=== PATIENT | male | born 1960 | race Caucasian/White ===

== ENCOUNTER 2023-11-26 10:51 | Emergency (ER) | payer MEDICARE, BC, SELFPAY ==
[2023-11-26] VITALS (21 sets, daily range): BP systolic 112–127; BP diastolic 73–85; PULSE 54–67; RESP 20; TEMP 36.5–36.6; O2SAT 94–99; BMI 30.6
--- NOTE | 2023-11-26 11:39 | CT_ITS ---
Patient: CAMILA NOLAN Facility:?[facility] Patient ID:?[id number] Site Patient ID:?[id number]. Site :?[id number] Study:?CT-Chest WITHOUT-11/26/2023 12:06:07 PM Ordering Physician:?DR. ARMSTRONG Final Report: INDICATION: Cough, fever. TECHNIQUE: CT chest without contrast. COMPARISON: None. FINDINGS: Lungs and pleura: Focal left upper lobe tree-in-bud nodularity. Trace scattered granulomatous disease, including the right lung base. No large focal consolidation. No pleural effusions, pleural thickening, or pneumothorax. Heart and vasculature: Heart size is normal. Thoracic aorta and pulmonary artery are normal in caliber. Lymph nodes/mediastinum: No mediastinal, hilar, or axillary adenopathy. Chest wall: No masses. Upper abdomen: No significant findings. Tiny right adrenal adenoma. Bones: Unremarkable for age. IMPRESSION: Focal left upper lobe tree-in-bud nodularity, likely pneumonia. Please note that all CT scans at this facility use dose modulation, iterative reconstruction, and/or weight-based dosing when appropriate to reduce radiation dose to as low as reasonably achievable. Dictated by Kem Shoemaker MD @ 11/26/2023 12:17:05 PM Signed by:?Kem Shoemaker MD @11/26/2023 12:17:05 PM (Electronic Signature)
--- NOTE | 2023-11-26 11:41 | ED_ITS ---
HPI - General Adult General Date Seen: 11/26/23 Chief complaint: Cough Stated complaint: cough,low back pain Time Seen by Provider: 11/26/23 10:52 Source: patient, family and RN notes reviewed Mode of arrival: ambulatory Limitations: no limitations History of Present Illness HPI narrative: Patient is a 62-year-old male who has been feeling sick since Sunday, 3 days ago. Was seen at [facility] yesterday, had negative viral swabs, normal blood work and chest x-ray by his report. He believes that he is been wheezy, was prescribed Tessalon yesterday for cough but no other medications. He is here with his today because he is feeling worse. He feels fatigued and weak, he has a cough which is sometimes productive of yellow or green sputum. He has not had a fever that he knows of although he says he woke up 1 night and his temples felt hot. He has not had any nausea, vomiting or diarrhea, but notes that he has not really been eating because of decreased appetite. General health is good, he takes some medication for bipolar disorder that he has been on for quite some time. He does not smoke or drink. He says he has been pushing really hard as they are doing a renovation on his house and he is doing a lot of the work himself, he thinks he may have just over worked himself. Related Data Allergies Allergy/AdvReac Type Severity Reaction Status Date / Time No Known Drug Allergies Allergy Verified 11/26/23 11:07 Review of Systems Status of ROS: Reports: 10 or more systems reviewed and unremarkable except as noted in History and below [facility] Social History Smoking Status: Never smoker Do you use any of these nicotine containing products: None Second hand tobacco smoke exposure: No How often do you have a drink containing alcohol: monthly or less How many standard drinks containing alcohol do you have on a typical day: 1 or 2 How often do you have six or more drinks on one occasion: Never AUDIT-C Alcohol total score: 1 Non-prescribed substance use: denies use service: No Exam Narrative: Exam Narrative: Vital signs as noted above. In general, an alert, nontoxic male. Fatigued. Head: Normocephalic, atraumatic. Eyes: Pupils are equal reactive. Extraocular movements are full. Conjunctivae are normal. ENT: Mucous membranes are moist. Throat is normal. Neck: Supple without lymphadenopathy. Heart: Regular rate and rhythm. No murmur or rub. Lungs: Scattered rhonchi and coarse crackles, no significant wheezing, no increased work of breathing. Abdomen: Soft and nontender. Extremities: Well perfused. No edema. No calf tenderness. Pulses intact. Neurologic: Patient is alert and oriented to person and place. Speech is fluent. Face is symmetric. Moves all extremities equally. Affect: Normal. Skin: Warm and dry. Well perfused. Const: Vital Signs, click to edit/add: Vital Signs - 24 hr 11/26/23 11:09 11/26/23 11:26 11/26/23 11:30 Temperature 97.7 F Pulse Rate 67 60 Pulse Rate [Pulse Oximeter] 63 Respiratory Rate 20 Blood Pressure Blood Pressure [Ri ght Upper Arm] 127/83 Pulse Oximetry 95 96 [facility] 11/26/23 11:32 11/26/23 11:45 11/26/23 12:03 Temperature Pulse Rate 60 62 58 L Pulse Rate [Pulse Oximeter] Respiratory Rate Blood Pressure 121/81 Blood Pressure [Ri ght Upper Arm] Pulse Oximetry 96 96 96 Oxygen Delivery [facility] 11/26/23 12:04 11/26/23 12:15 11/26/23 12:30 Temperature Pulse Rate 60 61 60 Pulse Rate [Pulse Oximeter] Respiratory Rate Blood Pressure 127/85 Blood Pressure [Ri ght Upper Arm] Pulse Oximetry 95 96 96 Oxygen Delivery [facility] 11/26/23 12:32 11/26/23 12:45 11/26/23 13:00 Temperature Pulse Rate 60 57 L 58 L Pulse Rate [Pulse Oximeter] Respiratory Rate Blood Pressure 112/76 Blood Pressure [Ri ght Upper Arm] Pulse Oximetry 94 95 94 Oxygen Delivery [facility] 11/26/23 13:02 11/26/23 13:03 11/26/23 13:19 Temperature Pulse Rate 59 L 57 L 58 L Pulse Rate [Pulse Oximeter] Respiratory Rate Blood Pressure 115/76 Blood Pressure [Ri ght Upper Arm] Pulse Oximetry 95 94 99 Oxygen Delivery [facility] 11/26/23 13:30 11/26/23 13:32 11/26/23 13:45 Temperature Pulse Rate 56 L 57 L 55 L Pulse Rate [Pulse Oximeter] Respiratory Rate Blood Pressure 118/73 Blood Pressure [Ri ght Upper Arm] Pulse Oximetry 98 98 99 Oxygen Delivery Me thod 11/26/23 14:00 11/26/23 14:00 11/26/23 14:02 Temperature 97.8 F Pulse Rate 57 L 56 L Pulse Rate [Pulse Oximeter] Respiratory Rate Blood Pressure 116/79 Blood Pressure [Ri ght Upper Arm] Pulse Oximetry 96 96 Oxygen Delivery Me thod 11/26/23 14:03 Temperature Pulse Rate 54 L Pulse Rate [Pulse Oximeter] Respiratory Rate Blood Pressure Blood Pressure [Ri ght Upper Arm] Pulse Oximetry 99 Oxygen Delivery Me thod Documenting provider has reviewed patient's vital signs: yes Course Course ED Course: I elected to place an IV here, he had a L of normal saline. I checked labs, CBC shows a normal white blood cell count of 5.25 and a normal diff. He does have mild thrombocytopenia with platelet count [id number], hemoglobin is 13. Metabolic panel is normal. CRP was elevated at 14.2, sed rate elevated at 49, repeat COVID influenza negative. I elected to do a CT scan without contrast of the chest primarily to look for pneumonia or any signs of adenopathy. I was not concerned about pulmonary embolism in this patient. CT scan read as follows by Radiology:FINDINGS: Lungs and pleura: Focal left upper lobe tree-in-bud nodularity. Trace scattered granulomatous disease, including the right lung base. No large focal consolidation. No pleural effusions, pleural thickening, or pneumothorax. Heart and vasculature: Heart size is normal. Thoracic aorta and pulmonary artery are normal in caliber. Lymph nodes/mediastinum: No mediastinal, hilar, or axillary adenopathy. Chest wall: No masses. Upper abdomen: No significant findings. Tiny right adrenal adenoma. Bones: Unremarkable for age. IMPRESSION: Focal left upper lobe tree-in-bud nodularity, likely pneumonia. I do think it is reasonable to cover him with an antibiotic, though discussed I think there is likely a viral component to this as well and he likely will not feel significantly improved for another several days to week. Thrombocytopenia is mild, may be viral, can be followed up with primary care. Reviewed that while he may not feel significantly improved over the next couple of days, he should not feel significantly worse either, for significant shortness of breath, high fevers, vomiting chills etcetera he should come back. We did try DuoNeb here, he did not feel that it made any significant difference, so I do not think prednisone or inhaled beta agonists are likely to be helpful symptomatically. I do not hear significant bronchospasm. If he is not improved to baseline in a week, he should be seen by his primary doctor. Vital Signs Vital signs: Initial Vital Signs Temperature 97.7 F 11/26/23 11:09 Temperature Source Temporal Artery Scan 11/26/23 11:09 Pulse Rate 63 11/26/23 11:09 Pulse Rhythm Regular 11/26/23 11:09 Respiratory Rate 20 11/26/23 11:09 Blood Pressure 127/83 11/26/23 11:09 Blood Pressure Mean 97 11/26/23 11:09 Blood Pressure Position Supine 11/26/23 11:09 Pulse Oximetry 95 11/26/23 11:09 Oxygen Delivery Method Room Air 11/26/23 11:09 Vital Signs Temperature 97.7 F 11/26/23 11:09 Pulse Rate 63 11/26/23 11:09 Respiratory Rate 20 11/26/23 11:09 Blood Pressure 127/83 11/26/23 11:09 Pulse Oximetry 95 11/26/23 11:09 Oxygen Delivery Method Room Air 11/26/23 11:09 Temperature 97.8 F 11/26/23 14:00 Pulse Rate 54 L 11/26/23 14:03 Respiratory Rate 20 11/26/23 11:09 Blood Pressure 116/79 11/26/23 14:02 Pulse Oximetry 99 11/26/23 14:03 Oxygen Delivery Method Room Air 11/26/23 11:09 Medications Administered Medications: Discontinued Medications Generic Name Dose Route Start Last Admin Trade Name Freq PRN Reason Stop Dose Admin Albuterol/Ipratropium 1 neb 11/26/23 12:28 11/26/23 13:15 Iprat-Albut 0.5-2.5 Mg/3 Ml Neb IH 11/26/23 12:29 1 neb ONCE ONE Administration Sodium Chloride 1,000 mls @ 1,000 mls/hr 11/26/23 11:45 11/26/23 13:18 0.9 % Sodium Chloride 1000 Ml IV 11/26/23 12:44 Infused .Q1H GAUDENCIO Infusion Ketorolac Tromethamine 15 mg 11/26/23 11:39 11/26/23 12:16 Ketorolac 15 Mg/Ml Inj IVP 11/26/23 11:40 15 mg ONCE ONE Administration Medical Decision Making Lab Data Labs: Lab Results 11/26/23 11/26/23 Range/Units 11:41 12:13 WBC 5.25 (4.50-11.00) K/uL RBC 4.33 (4.30-5.90) m/uL Hgb 13.0 L (13.5-17.5) gm/dL Hct 39.1 (37.0-53.0) % MCV 90 (80-100) fL MCH 30 (26-34) pg MCHC 33 (32-36) gm/dL RDW Coeff of Juliet 12.4 (11.5-15.5) % Plt Count 111 L (140-440) K/uL Neut % (Auto) 67.3 (42.0-72.0) % Lymph % (Auto) 20.8 (20-44) % [place] % (Auto) 10.9 (0.0-11.0) % Eos % (Auto) 0.6 (0.0-7.0) % Baso % (Auto) 0.2 (0.0-3.0) % Neut # (Auto) 3.54 (1.7-7.0) K/uL Lymph # (Auto) 1.09 (0.90-2.90) K/uL [place] # (Auto) 0.60 (0.00-0.90) K/UL Eos # (Auto) 0.03 (0.00-0.50) K/uL Baso # (Auto) 0.01 (0.00-0.30) K/uL Abs Immat Gran (auto) 0.01 (0.00-0.30) K/uL Imm/Tot Granulo (auto) 0.2 % ESR 49 H (2-15) mm/hr Sodium 139 (135-149) mmol/L Potassium 4.2 (3.6-5.1) mmol/L Chloride 107 (96-114) mmol/L Carbon Dioxide 24 (20-32) mmol/L Anion Gap 8 (7-15) mEq/L BUN 29 (7-30) mg/dL Creatinine 1.3 (0.5-1.5) mg/dL Estimated Creat Clear 68.61 Estimated GFR 61 ml/min Glucose 109 (60-115) mg/dL Calcium 9.6 (8.4-10.6) mg/dL C-Reactive Protein 14.2 H (0.5-1.0) mg/dL SARS-CoV-2 (PCR) Negative SARS-CoV-2 (Negative) Influenza Type A (PCR) Negative PCR FLU A (Negative) Influenza Type B (PCR) Negative PCR FLU B (Negative) RSV (PCR) Negative PCR RSV (Negative) Discharge Plan Discharge Clinical Impression: Pneumonia Patient Disposition: Home, Self-Care Condition: Stable Instructions: Pneumonia (ED) Additional Instructions: Antibiotic as prescribed. Ibuprofen or Tylenol as needed. Maintain hydration, plenty of rest. I suspect there is a viral component to this, so it may be another week yet before you are feeling significantly improved, but you should not be feeling significantly worse. If you do, if you develop new symptoms such as high fevers, significant difficulty breathing, vomiting etcetera, return any time to the emergency department. Follow Up/Referrals: Norma Hammond MD [Primary Care Provider] - Stand Alone Forms: [employer] Info Instructions
[2023-11-26] MEDS: 0.9 % SODIUM CHLORIDE 1000 ml 1,000 ML IV (12:15)
[2023-11-26] MEDS: KETOROLAC 15 MG/ML inj IVP (12:16)
[2023-11-26 12:38] LABS: PCR FLU A Negative PCR FLU A (Negative); PCR FLU B Negative PCR FLU B (Negative); PCR RSV Negative PCR RSV (Negative); SARS PCR* Negative SARS-CoV-2 (Negative)
[2023-11-26 12:45] LABS: Basophils Absolute Auto 0.01 K/uL (0.00-0.30); Basophils Percent Auto 0.2 % (0.0-3.0); Eosinophils Absolute Auto 0.03 K/uL (0.00-0.50); Eosinophils Percent Auto 0.6 % (0.0-7.0); Hematocrit 39.1 % (37.0-53.0); Immature Granulocytes Abs Auto 0.01 K/uL (0.00-0.30); Immature Granulocytes Pct Auto 0.2 %; Lymphocytes Absolute Auto 1.09 K/uL (0.90-2.90); Lymphocytes Percent Auto 20.8 % (20-44); Mean Corpuscular HGB Conc 33 gm/dL (32-36); Mean Corpuscular Hemoglobin 30 pg (26-34); Mean Corpuscular Volume 90 fL (80-100); Monocytes Percent Auto 10.9 % (0.0-11.0); Neutrophils Absolute Auto 3.54 K/uL (1.7-7.0); Neutrophils Percent Auto 67.3 % (42.0-72.0); Platelet Count* 111 K/uL (140-440); RDW Coefficient of Variation % 12.4 % (11.5-15.5); Red Blood Count 4.33 m/uL (4.30-5.90); White Blood Count* 5.25 K/uL (4.50-11.00)
[2023-11-26 12:50] LABS: Slide Review Reflex No
[2023-11-26 12:59] LABS: Chloride* 107 mmol/L (96-114); Potassium* 4.2 mmol/L (3.6-5.1); Sodium* 139 mmol/L (135-149)
[2023-11-26 13:02] LABS: Anion Gap 8 mEq/L (7-15); Blood Urea Nitrogen* 29 mg/dL (7-30); Carbon Dioxide* 24 mmol/L (20-32); Creatinine* 1.3 mg/dL (0.5-1.5); Est. Creatinine Clearance* 68.61; Estimated Glomerular Filt Rate 61 ml/min
[2023-11-26 13:03] LABS: Calcium* 9.6 mg/dL (8.4-10.6); Glucose* 109 mg/dL (60-115)
[2023-11-26] MEDS: IPRAT-ALBUT 0.5-2.5 MG/3 ML NEB 1 NEB IH (13:15)
[2023-11-26 13:21] LABS: C Reactive Protein* 14.2 mg/dL (0.5-1.0)
[2023-11-26 14:16] LABS: Erythrocyte SedimentationRate* 49 mm/hr (2-15)
== END 2023-11-26 14:15 | disposition home or self-care (01) ==
PROVIDERS: Emergency Provider Emergency Medicine; PCP Family Medicine
DX: J18.9 Pneumonia, unspecified organism (principal)
CPT/HCPCS: 36415; 71250; 80048; 85025; 85651; 86140; 87631; 94640; 96374; 99284; 99285; J1885; J7030